=== PATIENT | female | born 1985 | race Caucasian/White ===

== ENCOUNTER 2016-11-11 20:47 | Emergency (ER) | payer SELFPAY ==
[~2016-11-11] VITALS: Ht 157.5 cm; Wt 72.6 kg
[2016-11-11 20:48] VITALS: BP 136/80
[2016-11-11] MEDS ORDERED: GENT3OPD OD (21:29)
[2016-11-11] MEDS ORDERED: GENTAMICIN 0.3% OPHTH SOL 5 ML BTL OD ONE (21:30)
== END 2016-11-11 21:42 | disposition home or self-care (01) ==
LOC: M ED 21:41
DX: H10.31 Unspecified acute conjunctivitis, right eye (principal)

== ENCOUNTER → 2023-03-11 | Outpatient (CLI) | payer OTHER ==
[~2023-03-11] MED LIST: GENT0.3S36 OD
== END ==
LOC: M RAD 08:09 → MERGE 08:30
PROVIDERS: ATTEND Nurse Practitioner Adult Health
DX: M35.7 Hypermobility syndrome (principal)